=== PATIENT | female | born 1970 | race Caucasian/White ===

== ENCOUNTER → 2017-01-23 | Outpatient (CLI) | payer OTHER ==
[2017-01-23 13:27] LABS: CHLORIDE,CL 105 mmol/L (98-110); SODIUM,NA 136 mmol/L (136-146)
== END ==
LOC: MW.CHFP 12:38
PROVIDERS: ATTEND Physician Assistant
DX: E03.9 Hypothyroidism, unspecified (principal); I10 Essential (primary) hypertension
CPT/HCPCS: 36415; 80053; 80061; 84443

== ENCOUNTER 2017-08-08 18:51 | Emergency (ER) | payer BC ==
[2017-08-08 20:47] VITALS: BP 142/71
--- NOTE | 2017-08-08 20:52 | EDM.PDOC ---
ED HPI GENERAL MEDICAL PROBLEM - General Chief Complaint: Upper Extremity Injury/Pain Stated Complaint: FALL/PAIN RT WRIST Time Seen by Provider: 08/08/17 20:50 Source of Information: Reports: Patient History Limitations: Reports: No Limitations - History of Present Illness INITIAL COMMENTS - FREE TEXT/NARRATIVE: History of present illness: [37-year-old female with a slip and fall injury with hand at extended. Patient complains of pain at wrist site as well as acute swelling] Review of systems: As per history of present illness and below otherwise all systems reviewed and negative. Past medical history: As per history of present illness and as reviewed below otherwise noncontributory. Surgical history: As per history of present illness and as reviewed below otherwise noncontributory. Social history: No reported history of drug or alcohol abuse. Family history: As per history of present illness and as reviewed below otherwise noncontributory. Physical exam: HEENT: Atraumatic, normocephalic, pupils reactive, negative for conjunctival pallor or scleral icterus, mucous membranes moist, throat clear, neck supple, nontender, trachea midline. Lungs: Clear to auscultation, breath sounds equal bilaterally, chest nontender. Heart: S1S2, regular, negative for clicks, rubs, or JVD. Abdomen: Soft, nondistended, nontender. Negative for masses or hepatosplenomegaly. Negative for costovertebral tenderness. Pelvis: Stable nontender. Genitourinary: Deferred. Rectal: Deferred. Extremities: Right wrist with some amount of swelling, point tenderness at the radial region as well as tenderness to palpation negative for cords or calf pain. Neurovascular unremarkable. Neuro: Awake, alert, oriented. Cranial nerves II through XII unremarkable. Cerebellum unremarkable. Motor and sensory unremarkable throughout. Exam nonfocal. Patient declined any pain medication here or on discharge Diagnostics: [X-ray right wrist] Therapeutics: [Wrist splint and sling] Impression: [Fracture of the right radial epiphyseal region] Plan: [Follow-up with orthopedics] Definitive disposition and diagnosis as appropriate pending reevaluation and review of above. right wrist Pain Score (Numeric/FACES): 3 - Related Data Allergies Allergy/AdvReac Type Severity Reaction Status Date / Time acetaminophen [From Percocet] Allergy Hives Verified 04/03/15 19:41 oxycodone HCl [From Percocet] Allergy Hives Verified 04/03/15 19:41 Sulfa (Sulfonamide Allergy Swelling Verified 08/08/17 19:41 Antibiotics) Home Meds: Home Meds Baciguent 1 applicful TRDERM BID 04/03/15 [History] Cephalexin [Keflex] 1 tab PO QID 04/03/15 [History] Eleutherococcus Extract 400 mg PO BID 04/03/15 [History] Hydrocodone/Acetaminophen [[place] 5-325] 1 tab PO Q4H PRN 04/03/15 [History] Ibuprofen [Advil] 4 tab PO TID PRN 04/03/15 [History] Levothyroxine 200 mcg PO DAILY 04/03/15 [History] Methocarbamol [Robaxin] 2 tab PO TID 04/03/15 [History] Nicotine [Nicotine Patch] 14 mg TRDERM DAILY 04/03/15 [History] Omeprazole 1 tab PO DAILY PRN 04/03/15 [History] Tamoxifen [Nolvadex] 0 mg PO DAILY 04/03/15 [History] amLODIPine [Norvasc] 1 tab PO DAILY 04/03/15 [History] traZODone 1 tab PO DAILY 04/03/15 [History] Past Medical History Cardiovascular History: Reports: High Cholesterol, Hypertension Gastrointestinal History: Reports: GERD Psychiatric History: Reports: Anxiety, Depression Endocrine/Metabolic History: Reports: Hypothyroidism Oncologic (Cancer) History: Reports: Breast, Thyroid, Other (See Below) Other Oncologic History: 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 double mastectomy in 2013 and lymph nodes removed in right arm pit. pt has had several rounds of radiation and chemotherapy in the past. - Infectious Disease History Infectious Disease History: Reports: Chicken Pox - Past Surgical History Female Surgical History: Reports: Tubal Ligation Endocrine Surgical History: Reports: Thyroidectomy Social & Family History - Family History Family Medical History: Noncontributory - Tobacco Use Smoking Status *Q: Current Every Day Smoker Years of Tobacco use: 30 Packs/Tins Daily: 0.1 - Caffeine Use Caffeine Use: Reports: Soda - Alcohol Use Days Per Week of Alcohol Use: 1 Number of Drinks Per Day: 0 Total Drinks Per Week: 0 - Recreational Drug Use Recreational Drug Use: No Drug Use in Last 12 Months: No Review of Systems - Review of Systems Review Of Systems: See Below (See history of present illness) ED EXAM, GENERAL - Physical Exam Exam: See Below (See history of present illness) Course - Vital Signs Last Recorded V/S: Last Vital Signs Temp 35.6 C 08/08/17 19:39 Pulse 74 08/08/17 20:47 Resp 18 08/08/17 20:47 BP 142/71 H 08/08/17 20:47 Pulse Ox 95 08/08/17 20:47 - Orders/Labs/Meds Orders: Active Orders 24 hr Category Date Time Status Wrist 2V Rt [CR] Stat Exams 08/08/17 19:27 Taken Departure - Departure Time of Disposition: 20:51 Disposition: Home, Self-Care 01 Condition: Good Clinical Impression: Fracture of radius - Discharge Information Instructions: Cast or Splint Care, [id number]-Mxli, How to Use a Sling, Easy-to- Read Referrals: PCP,None [Primary Care Provider] - Forms: ED Department Discharge Additional Instructions: The following information is given to patients seen in the emergency department who are being discharged to home. This information is to outline your options for follow-up care. We provide all patients seen in our emergency department with a follow-up referral. The need for follow-up, as well as the timing and circumstances, are variable depending upon the specifics of your emergency department visit. If you don't have a primary care physician on staff, we will provide you with a referral. We always advise you to contact your personal physician following an emergency department visit to inform them of the circumstance of the visit and for follow-up with them and/or the need for any referrals to a consulting specialist. The emergency department will also refer you to a specialist when appropriate. This referral assures that you have the opportunity for follow-up care with a specialist. All of these measure are taken in an effort to provide you with optimal care, which includes your follow-up. Under all circumstances we always encourage you to contact your private physician who remains a resource for coordinating your care. When calling for follow-up care, please make the office aware that this follow-up is from your recent emergency room visit. If for any reason you are refused follow-up, please contact the [facility] Emergency Department at and asked to speak to the emergency department charge nurse. Please follow-up with orthopedics as discussed Use splint and sling as directed and discussed Return to ED as needed as discussed [facility] [address], [address] [place] [address] - My Orders Last 24 Hours: My Active Orders 08/08/17 19:27 Wrist 2V Rt [CR] Stat - Assessment/Plan Last 24 Hours: My Active Orders 08/08/17 19:27 Wrist 2V Rt [CR] Stat
--- NOTE | 2017-08-10 13:31 | CR ---
EXAM DATE: 08/08/17 PATIENT'S AGE: 47 Patient: CESAR VOSS Facility: [place], [place] Site . Site : 1970 Study: XRay Extremity Right [id number] 8:06:32 PM Ordering Physician: Doctor Bower Final Report: INDICATION: Wrist pain TECHNIQUE: Wrist radiograph 2 views right COMPARISON: None FINDINGS: Bones: There is a branching lucency seen on the frontal view of the distal radial metaphyseal region. Joints: The radiocarpal, carpal, and carpometacarpal joints are unremarkable in appearance. Soft tissues: Unremarkable. No radiopaque foreign bodies are seen. IMPRESSION: 1. There is a branching lucency seen on the frontal view of the distal radial metaphyseal region. Correlation with physical exam for focal tenderness in this region is recommended to exclude an acute fracture. Dictated by Dimitry Ferguson MD @ 08/08/2017 8:08:57 PM Dictated by: Dimitry Ferguson MD @ 08/08/2017 20:09:01 (Electronic Signature) Report Signed by Proxy. ARIADNA
== END 2017-08-08 20:58 | disposition home or self-care (01) ==
LOC: MW.ED 18:51
DX: S59.291A Other physeal fracture of lower end of radius, right arm, initial encounter for closed fracture (principal); I10 Essential (primary) hypertension; F17.210 Nicotine dependence, cigarettes, uncomplicated; Z88.2 Allergy status to sulfonamides; Z88.5 Allergy status to narcotic agent; Z79.899 Other long term (current) drug therapy; W01.0XXA Fall on same level from slipping, tripping and stumbling without subsequent striking against object, initial encounter
CPT/HCPCS: 73100; 99283; A4566; L3807; 99282

== ENCOUNTER 2017-12-31 06:34 | Day surgery (SDC) | payer BC ==
[2017-12-30 12:00] LABS: CHLORIDE,CL 104 mmol/L (98-107); SODIUM,NA 138 mmol/L (136-145)
[~2017-12-31 06:34] MED LIST: Sodium Chloride 0.9% 10 ML Syringe FLUSH PRN; Sodium Chloride 0.9% 2.5 ML Syringe FLUSH PRN; ceFAZolin 2 GM in Premix Bag 1 BAG IV ONE
[2017-12-31] MEDS: Lactated Ringers 1,000 ML IV SCH ×2 (06:47→11:53)
[2017-12-31] MEDS ORDERED: Scopolamine 1.5 MG Transdermal Patch TRDERM PRN (07:24)
[2017-12-31] MEDS ORDERED: Rocuronium 10 MG/ML 10 ML Syringe ONE (07:25)
[2017-12-31] MEDS ORDERED: Ondansetron 4 MG/2 ML SDV ONE (07:25)
[2017-12-31] MEDS ORDERED: Propofol 200 MG/20 ML SDV ONE (07:25)
[2017-12-31] MEDS ORDERED: Lidocaine 2% 5 ML SDV ONE (07:25)
[2017-12-31] MEDS ORDERED: HYDROmorphone 2 MG/ML SDV ONE (07:26)
[2017-12-31] MEDS ORDERED: fentaNYL 250 MCG/5 ML SDV ONE (07:26)
[2017-12-31] MEDS ORDERED: Midazolam 1 MG/ML 2 ML SDV ONE (07:26)
--- NOTE | 2017-12-31 07:29 | PCM.PREANE ---
Preanesthetic Assessment - Anesthesia/Transfusion/Family Hx Anesthesia History: Prior Anesthesia Without Reaction Other Type of Anesthesia Reaction Comment: DENIES ANY PROBLEMS WITH ANESTHESIA, has top partial Family History of Anesthesia Reaction: No Transfusion History: No Prior Transfusion(s) - Review of Systems General: No Symptoms Pulmonary: No Symptoms Cardiovascular: No Symptoms Gastrointestinal: No Symptoms Neurological: No Symptoms Other: Reports: None - Physical Assessment O2 Sat by Pulse Oximetry: 97 Respiratory Rate: 16 Vital Signs: Last Vital Signs Temp 36.4 C 12/31/17 06:46 Pulse 80 12/31/17 06:46 Resp 16 12/31/17 06:46 BP 131/69 12/31/17 06:46 Pulse Ox 97 12/31/17 06:46 Height: 1.68 m Weight: 79.379 kg ASA Class: 3 Mental Status: Alert & Oriented x3 Airway Class: Mallampati = 2 Dentition: Reports: Dentures (upper) Thyro-Mental Finger Breadths: 3 Mouth Opening Finger Breadths: 2 ROM/Head Extension: Full Lungs: Clear to Auscultation, Normal Respiratory Effort Cardiovascular: Regular Rate, Regular Rhythm - Lab Values: Laboratory Last Values WBC 7.01 K/uL (4.0-11.0) 12/30/17 11:20 RBC 3.71 M/uL (4.30-5.90) L 12/30/17 11:20 Hgb 9.3 g/dL (12.0-16.0) L 12/30/17 11:20 Hct 30.7 % (36.0-46.0) L 12/30/17 11:20 MCV 82.7 fL (80.0-98.0) 12/30/17 11:20 MCH 25.1 pg (27.0-32.0) L 12/30/17 11:20 MCHC 30.3 g/dL (31.0-37.0) L 12/30/17 11:20 RDW Std Deviation 46.6 fl (28.0-62.0) 12/30/17 11:20 RDW Coeff of Latoya 15 % (11.0-15.0) 12/30/17 11:20 Plt Count 447 K/uL (150-400) H 12/30/17 11:20 MPV 10.00 fL (7.40-12.00) 12/30/17 11:20 Nucleated RBC % 0.0 /100WBC 12/30/17 11:20 Nucleated RBCs # 0 K/uL 12/30/17 11:20 Sodium 138 mmol/L (136-145) 12/30/17 11:20 Potassium 3.6 mmol/L (3.5-5.1) 12/30/17 11:20 Chloride 104 mmol/L (98-107) 12/30/17 11:20 Carbon Dioxide 25.1 mmol/L (21.0-32.0) 12/30/17 11:20 BUN 20 mg/dL (7.0-18.0) H 12/30/17 11:20 Creatinine 0.7 mg/dL (0.6-1.0) 12/30/17 11:20 Est Cr Clr Drug Dosing 92.01 mL/min 12/30/17 11:20 Estimated GFR (MDRD) > 60.0 ml/min 12/30/17 11:20 Glucose 88 mg/dL (74-106) 12/30/17 11:20 Calcium 9.9 mg/dL (8.5-10.1) 12/30/17 11:20 HCG, Qual NEGATIVE (NEG) 12/30/17 11:20 Blood Type AB POSITIVE 12/30/17 11:20 Antibody Screen NEGATIVE 12/30/17 11:20 - Allergies Allergies/Adverse Reactions: Allergies Allergy/AdvReac Type Severity Reaction Status Date / Time acetaminophen [From Percocet] Allergy Difficulty Verified 12/31/17 07:10 Breathing oxycodone HCl [From Percocet] Allergy Difficulty Verified 12/31/17 07:10 Breathing Sulfa (Sulfonamide Allergy Difficulty Verified 12/31/17 07:10 Antibiotics) Breathing - Blood Blood Available: No - Anesthesia Plan Pre-Op Medication Ordered: None - Acknowledgements Anesthesia Type Planned: General Anesthesia Pt an Appropriate Candidate for the Planned Anesthesia: Yes Alternatives and Risks of Anesthesia Discussed w Pt/Guardian: Yes Pt/Guardian Understands and Agrees with Anesthesia Plan: Yes PreAnesthesia Questionnaire HEENT History: Reports: Other (See Below) Other HEENT History: has upper denture Cardiovascular History: Reports: High Cholesterol, Hypertension Gastrointestinal History: Reports: GERD PAPER TESTER History: Reports: Endometrial Ablation Musculoskeletal History: Reports: Fracture, Neck Pain, Chronic Other Musculoskeletal History: hx of fx wrist Neurological History: Reports: Other (See Below) Other Neuro History: claustrophobic Psychiatric History: Reports: Anxiety, Depression, Other (See Below) ( claustrophobia) Endocrine/Metabolic History: Reports: Hypothyroidism Oncologic (Cancer) History: Reports: Breast, Other (See Below) Other Oncologic History: 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, malignant schwannona- had excision x2 and lymph nodes removed from neck Other Dermatologic History: had total of 16 surgeries on right side of her neck , scar tissue on neck from radiation therapy and surgery, lymphedema right arm - Infectious Disease History Infectious Disease History: Reports: Chicken Pox - Past Surgical History Female Surgical History: Reports: Endometrial Ablation, Mastectomy, Tubal Ligation Endocrine Surgical History: Reports: Thyroidectomy Oncologic Surgical History: Reports: Mastectomy, Other (See Below) - SUBSTANCE USE Smoking Status *Q: Current Every Day Smoker (1/2 ppd , takes wellbutrin to stop smoking) Tobacco Use Within Last Twelve Months: Cigarettes Days Per Week of Alcohol Use: 1 Number of Drinks Per Day: 0 Total Drinks Per Week: 0 Recreational Drug Use History: No - HOME MEDS Home Medications: Home Meds Ibuprofen [Advil] 1 - 2 tab PO Q4H PRN 04/03/15 [History] Levothyroxine 200 mcg PO DAILY 04/03/15 [History] Omeprazole 20 mg PO DAILY PRN 04/03/15 [History] amLODIPine [Norvasc] 5 mg PO DAILY 04/03/15 [History] Levothyroxine 25 mcg PO DAILY 12/29/17 [History] PARoxetine HCl [Paxil] 20 mg PO DAILY 12/29/17 [History] atorvaSTATin Calcium [Atorvastatin Calcium] 40 mg PO BEDTIME 12/29/17 [History] buPROPion HCl [Wellbutrin SR] 150 mg PO BID 12/29/17 [History] - CURRENT (IN HOUSE) MEDS Current Meds: Current Medications Lactated Ringer's (Ringers, Lactated) 1,000 mls @ 125 mls/hr IV ASDIRECTED AMBER Last Admin: 12/31/17 06:47 Dose: 125 mls/hr Sodium Chloride (Saline Flush) 10 ml FLUSH ASDIRECTED PRN PRN Reason: Keep Vein Open Sodium Chloride (Saline Flush) 2.5 ml FLUSH ASDIRECTED PRN PRN Reason: Keep Vein Open Discontinued Medications Cefazolin Sodium/Dextrose 2 gm (/ Premix) 50 mls @ 100 mls/hr IV ONETIME ONE Stop: 12/30/17 10:48
[2017-12-31] MEDS ORDERED: ACETAMINOPHEN IV ONE (07:39)
[2017-12-31] MEDS ORDERED: Fluorescein 5 ML Vial ONE (07:39)
[2017-12-31] MEDS ORDERED: ceFAZolin/Dextrose,Iso-Osmotic 2 GM/50 ML Duplex Bag IV ONE (07:40)
[2017-12-31] MEDS ORDERED: Dexamethasone 4 MG/ML 5 ML MDV ONE (08:09)
[2017-12-31] MEDS ORDERED: fentaNYL 100 MCG/2 ML SDV IVPUSH PRN (08:16)
[2017-12-31] MEDS ORDERED: Octyl 2-Cyanoacrylate 1 Tube ONE (08:24)
[2017-12-31] MEDS ORDERED: Glycopyrrolate 0.2 MG/ML SDV ONE (09:03)
[2017-12-31] MEDS ORDERED: Neostigmine Methylsulfate 1 MG/ML 5 ML Syringe ONE (09:03)
[2017-12-31] MEDS ORDERED: Ketorolac 30 MG/ML SDV ONE (09:04)
[2017-12-31] MEDS ORDERED: Ketorolac 30 MG/ML SDV IVPUSH ONE (09:06)
[2017-12-31] MEDS ORDERED: Promethazine 25 MG/ML SDV IM PRN (09:06)
[2017-12-31] MEDS ORDERED: Acetaminophen/oxyCODONE 325-5 MG Tab PO PRN ×4 (09:06→13:55)
[2017-12-31] MEDS ORDERED: Ondansetron 4 MG/2 ML SDV IVPUSH PRN (09:06)
[2017-12-31] MEDS ORDERED: Morphine 4 MG/ML Syringe IVPUSH PRN (09:06)
--- NOTE | 2017-12-31 09:10 | PCM.OPNOTE ---
- General Post-Op/Procedure Note Date of Surgery/Procedure: 12/31/17 Operative Procedure(s): TLH, BSO and Cystoscopy Pre Op Diagnosis: Bleeding and enlarge uterus Post-Op Diagnosis: Same Anesthesia Technique: General ET Tube, Moderate Sedation Primary Surgeon: Eduard Brand Steel Handler: Ree Martinez EBL in mLs: 75 Complications: None Condition: Good
[2017-12-31] MEDS ORDERED: Ondansetron 4 MG/2 ML SDV IV PRN (13:55)
[2017-12-31] MEDS ORDERED: Ibuprofen 800 MG Tab PO PRN (13:55)
[2017-12-31] MEDS ORDERED: diphenhydrAMINE 50 MG/ML SDV IVPUSH PRN (13:55)
[2017-12-31] MEDS ORDERED: Bisacodyl 10 MG Supp RECTAL PRN (13:55)
[2017-12-31] MEDS ORDERED: Lanolin 100% Cream 7 GM Tube TOP PRN (13:55)
[2017-12-31] MEDS ORDERED: Lactated Ringers 1,000 ML IV SCH (14:00)
--- NOTE | 2017-12-31 14:33 | OR ---
SURGEON: Eduard Brand MD DATE OF PROCEDURE: PREOPERATIVE DIAGNOSES: 1. Menometrorrhagia. 2. Large uterus, possible fibroid. POSTOPERATIVE DIAGNOSES: 1. Menometrorrhagia. 2. Large uterus, possible fibroid. OPERATION PERFORMED: Examination under anesthesia, total laparoscopic hysterectomy, laparoscopic bilateral salpingo-oophorectomy, and cystoscopy. ALLIGATOR TRAPPER: BERNARDO Gutierrez ANESTHESIA: General endotracheal intubation, Agatha Corral and Dr. Mijares. ESTIMATED BLOOD LOSS: 75 mL. COMPLICATIONS: None. FINDINGS: Uterus about 11 to 12 weeks' size, minimum adhesion. INDICATION FOR SURGERY: Mallory refer to the admit note. PROCEDURE IN DETAIL: The patient was brought to the OR, properly identified. After adequate level of general anesthesia, the patient was placed in lithotomy position with an access to the abdomen and the vagina. The patient was prepped and draped in sterile fashion as usual. Ferguson catheter was placed in the bladder and then the uterine manipulator colpotomizer was placed, and an appropriate balloon was inflated without any problem. Then, the operation shifted abdominally. Stab wound done beneath the umbilicus. The Veress needle was placed in the peritoneal cavity and that cavity insufflated 6 L of carbon dioxide. The skin incision is large to accommodate 5 mm trocars and utilizing the Visiport technique, the peritoneal cavity was entered. Once we did that, then a 10 to 12 trocar and 5 mm trocar inserted in the left and right iliac fossa under direct visions. We started the operation by identifying the landmark of the pelvis and then using the PARDEEP-7 Harmonic scapula, the superior pedicle coagulated and transected. The tubes and ovary are included with the specimen. The same thing was done on both sides. Then, round ligament on both sides coagulated and transected, and then the anterior leaf of the broad ligament dissected down more medially pushing the bladder completely away from the operative field, and then skeletonization of the uterine vessels at the level of the VCare manipulator veins and these vessel coagulated and transected using Pardeep Harmonic scapula. Once that is done, then using the Pardeep Harmonic scapula, circular incision in the vaginal mucosa around the tip of the VCare manipulator detaching the cervix from its attachment to the vagina. The uterus and cervix in both tubes and ovary removed vaginally, and then pneumoperitoneum was re-established by placing vaginal pack in the vagina, and then thorough irrigation of the entire operative field. There was no oozing and no bleeding, and we proceeded to close the vaginal cuff laparoscopically using 2-0 PDS interrupted sutures. While we were doing that, we asked the anesthesia personnel to give the patient fluorescein and then after that, the abdomen deflated. Ferguson catheter was removed. Cystoscopy performed. The bladder was intact. Both ureteric orifices were seen with the dye coming from both of them. Thus, the patency of both ureters verified. Satisfied with these finding and the procedure ended. Multiple instrument and hardware were retrieved from the abdomen and the vagina, then multiple laparoscopic incisions were closed in layer with 3-0 Vicryl. Instrument and sponge count were correct x2, and the patient tolerated the procedure well, went to recovery room in stable general condition. DANE / LAURY /[id number]
[2017-12-31] MEDS ORDERED: Ketorolac 30 MG/ML SDV IVPUSH PRN (15:00)
[2017-12-31] MEDS: Ketorolac 30 MG/ML SDV IVPUSH SCH ×2 (15:09→20:30)
[2017-12-31] MEDS: Docusate Sodium 100 MG Cap PO SCH (20:34)
[2018-01-01] MEDS: Ketorolac 30 MG/ML SDV IVPUSH SCH ×2 (01:10→07:35)
[2018-01-01 05:34] LABS: CHLORIDE,CL 106 mmol/L (98-107); SODIUM,NA 139 mmol/L (136-145)
--- NOTE | 2018-01-01 07:43 | PCM48HPAN ---
Post Anesthesia Note - EVALUATION WITHIN 48HRS OF ANESTHETIC Vital Signs in Normal Range: Yes Patient Participated in Evaluation: Yes Respiratory Function Stable: Yes Airway Patent: Yes Cardiovascular Function Stable: Yes Hydration Status Stable: Yes Pain Control Satisfactory: Yes Nausea and Vomiting Control Satisfactory: Yes Mental Status Recovered: Yes Resp Rate: 16
[2018-01-01 08:07] VITALS: BP 115/66
--- NOTE | 2018-01-01 09:11 | PCM.SURGPN ---
- General Info Date of Service: 01/01/18 POD#: 1 Functional Status: Reports: Pain Controlled - Review of Systems General: Reports: No Symptoms HEENT: Reports: No Symptoms Pulmonary: Reports: No Symptoms Cardiovascular: Reports: No Symptoms Gastrointestinal: Reports: No Symptoms Genitourinary: Reports: No Symptoms Musculoskeletal: Reports: No Symptoms Skin: Reports: No Symptoms Neurological: Reports: No Symptoms Psychiatric: Reports: No Symptoms - Patient Data Vitals - Most Recent: Last Vital Signs Temp 36.4 C 01/01/18 08:00 Pulse 96 01/01/18 08:00 Resp 22 H 01/01/18 08:00 BP 115/66 01/01/18 08:00 Pulse Ox 92 L 01/01/18 08:00 Weight - Most Recent: 79.379 kg I&O - Last 24 Hours: Intake & Output 12/31/17 01/01/18 01/01/18 22:59 06:59 14:59 Intake Total 570 Output Total 1150 Balance -580 Lab Results Last 24 Hrs: Laboratory Results - last 24 hr 01/01/18 01/01/18 Range/Units 05:00 05:00 WBC 11.60 H (4.0-11.0) K/uL RBC 3.22 L (4.30-5.90) M/uL Hgb 8.1 L (12.0-16.0) g/dL Hct 26.8 L (36.0-46.0) % MCV 83.2 (80.0-98.0) fL MCH 25.2 L (27.0-32.0) pg MCHC 30.2 L (31.0-37.0) g/dL RDW Std Deviation 46.6 (28.0-62.0) fl RDW Coeff of Latoya 15 (11.0-15.0) % Plt Count 401 H (150-400) K/uL MPV 9.90 (7.40-12.00) fL Neut % (Auto) 81.3 H (48.0-80.0) % Lymph % (Auto) 7.0 L (16.0-40.0) % [place] % (Auto) 11.1 (0.0-15.0) % Eos % (Auto) 0.4 (0.0-7.0) % Baso % (Auto) 0.2 (0.0-1.5) % Neut # (Auto) 9.4 H (1.4-5.7) K/uL Lymph # (Auto) 0.8 (0.6-2.4) K/uL [place] # (Auto) 1.3 H (0.0-0.8) K/uL Eos # (Auto) 0.1 (0.0-0.7) K/uL Baso # (Auto) 0.0 (0.0-0.1) K/uL Nucleated RBC % 0.0 /100WBC Nucleated RBCs # 0 K/uL Sodium 139 (136-145) mmol/L Potassium 3.6 (3.5-5.1) mmol/L Chloride 106 (98-107) mmol/L Carbon Dioxide 25.6 (21.0-32.0) mmol/L BUN 16 (7.0-18.0) mg/dL Creatinine 0.7 (0.6-1.0) mg/dL Est Cr Clr Drug Dosing 92.01 mL/min Estimated GFR (MDRD) > 60.0 ml/min Glucose 121 H (74-106) mg/dL Calcium 9.0 (8.5-10.1) mg/dL Med Orders - Current: Current Medications Docusate Sodium (Colace) 100 mg PO BID [facility] Last Admin: 12/31/17 20:34 Dose: 100 mg Fentanyl (Sublimaze) 50 mcg IVPUSH .Q5MIN PRN PRN Reason: Pain Lactated Ringer's (Ringers, Lactated) 1,000 mls @ 125 mls/hr IV ASDIRECTED [facility] Last Admin: 12/31/17 11:53 Dose: 125 mls/hr Lactated Ringer's (Ringers, Lactated) 1,000 mls @ 125 mls/hr IV ASDIRECTED [facility] Ketorolac Tromethamine (Toradol) 30 mg IVPUSH Q6H PRN PRN Reason: Pain (severe 7-10) Stop: 01/05/18 15:01 Ketorolac Tromethamine (Toradol) 30 mg IVPUSH Q6H [facility] Stop: 01/01/18 14:01 Last Admin: 01/01/18 07:35 Dose: 30 mg Morphine Sulfate (Morphine) 4 mg IVPUSH Q2H PRN PRN Reason: Pain (severe 7-10) Ondansetron HCl (Zofran) 4 mg IVPUSH Q6H PRN PRN Reason: Nausea/Vomiting Promethazine HCl (Phenergan) 25 mg IM Q6H PRN PRN Reason: Nausea/Vomiting Scopolamine (Transderm-Scop) 1.5 mg TRDERM Q72H PRN PRN Reason: Nausea Last Admin: 12/31/17 07:36 Dose: 1.5 mg Sodium Chloride (Saline Flush) 10 ml FLUSH ASDIRECTED PRN PRN Reason: Keep Vein Open Sodium Chloride (Saline Flush) 2.5 ml FLUSH ASDIRECTED PRN PRN Reason: Keep Vein Open Discontinued Medications Cefazolin Sodium/Dextrose (Ancef) Confirm Administered Dose 2 gm IV .STK-MED ONE Stop: 12/31/17 07:41 Dexamethasone (Dexamethasone) Confirm Administered Dose 20 mg .ROUTE .STK-MED ONE Stop: 12/31/17 08:10 Fentanyl (Sublimaze) Confirm Administered Dose 250 mcg .ROUTE .STK-MED ONE Stop: 12/31/17 07:27 Fluorescein Sodium (Ak-Fluor) Confirm Administered Dose 10 ml .ROUTE .STK-MED ONE Stop: 12/31/17 07:40 Glycopyrrolate (Robinul) Confirm Administered Dose 0.4 mg .ROUTE .STK-MED ONE Stop: 12/31/17 09:04 Hydromorphone HCl (Dilaudid) Confirm Administered Dose 2 mg .ROUTE .STK-MED ONE Stop: 12/31/17 07:27 Cefazolin Sodium/Dextrose 2 gm (/ Premix) 50 mls @ 100 mls/hr IV ONETIME ONE Stop: 12/30/17 10:48 Last Admin: 12/31/17 11:45 Dose: Not Given Acetaminophen (Ofirmev) Confirm Administered Dose 200 mls @ as directed IV .STK- MED ONE Stop: 12/31/17 07:40 Ketorolac Tromethamine (Toradol) Confirm Administered Dose 30 mg .ROUTE .STK- MED ONE Stop: 12/31/17 09:05 Ketorolac Tromethamine (Toradol) 30 mg IVPUSH ONETIME ONE Stop: 12/31/17 09:07 Last Admin: 12/31/17 11:45 Dose: Not Given Lidocaine (Xylocaine-Mpf 2%) Confirm Administered Dose 5 ml .ROUTE .STK-MED ONE Stop: 12/31/17 07:26 Midazolam HCl (Versed 1 Mg/Ml) Confirm Administered Dose 2 mg .ROUTE .STK-MED ONE Stop: 12/31/17 07:27 Neostigmine Methylsulfate (Neostigmine) Confirm Administered Dose 5 mg .ROUTE .STK-MED ONE Stop: 12/31/17 09:04 Octyl Cyanoacrylate (Dermabond Advance) Confirm Administered Dose 1 applic .ROUTE .STK-MED ONE Stop: 12/31/17 08:25 Ondansetron HCl (Zofran) Confirm Administered Dose 4 mg .ROUTE .STK-MED ONE Stop: 12/31/17 07:26 Propofol (Diprivan 20 Ml) Confirm Administered Dose 200 mg .ROUTE .STK-MED ONE Stop: 12/31/17 07:26 Rocuronium Ney (Zemuron) Confirm Administered Dose 100 mg .ROUTE .STK-MED ONE Stop: 12/31/17 07:26 - Exam Wound/Incisions: Healing Well General: Alert, Oriented HEENT: Pupils Equal Neck: Supple Lungs: Clear to Auscultation, Normal Respiratory Effort Cardiovascular: Regular Rate, Regular Rhythm GI/Abdominal Exam: Normal Bowel Sounds, Soft, Non-Tender, No Organomegaly, No Distention, No Abnormal Bruit, No Mass, Pelvis Stable Extremities: Normal Inspection, Normal Range of Motion, Non-Tender, No Pedal Edema, Normal Capillary Refill Skin: Warm, Dry, Intact Neurological: No New Focal Deficit Psy/Mental Status: Alert, Normal Affect, Normal Mood - Problem List Review Problem List Initiated/Reviewed/Updated: Yes - My Orders Last 24 Hours: Active Orders 24 hr Category Date Time Status Patient Status [ADT] Routine ADT 12/31/17 13:55 Active Communication Order [RC] PER UNIT ROUTINE Care 12/31/17 13:55 Inactive Communication Order [RC] PER UNIT ROUTINE Care 12/31/17 13:55 Inactive Communication Order [RC] Per Unit Routine Care 12/31/17 13:55 Inactive Notify Provider Vital Signs [RC] ASDIRECTED Care 12/31/17 09:06 Active Oxygen Therapy [RC] ASDIRECTED Care 12/31/17 09:06 Active RT Incentive Spirometry [RC] Q2HWA Care 12/31/17 09:06 Active Regular Diet [DIET] Diet 01/01/18 Breakfast Active Docusate Sodium [Colace] Med 12/31/17 21:00 Active 100 mg PO BID Ketorolac [Toradol] Med 12/31/17 14:00 Active 30 mg IVPUSH Q6H Ketorolac [Toradol] Med 12/31/17 15:00 Active 30 mg IVPUSH Q6H PRN Lactated Ringers [Ringers, Lactated] 1,000 ml Med 12/31/17 14:00 Active IV ASDIRECTED Morphine Med 12/31/17 09:06 Active 4 mg IVPUSH Q2H PRN Ondansetron [Zofran] Med 12/31/17 09:06 Active 4 mg IVPUSH Q6H PRN Promethazine [Phenergan] Med 12/31/17 09:06 Active 25 mg IM Q6H PRN fentaNYL [Sublimaze] Med 12/31/17 08:16 Active 50 mcg IVPUSH .Q5MIN PRN Peripheral IV Discontinue [OM.PC] Routine Oth 12/31/17 09:06 Ordered Sequential Compression Device [OM.PC] Per Unit Routine Oth 12/31/17 09:06 Ordered Resuscitation Status Routine Resus Stat 12/31/17 09:06 Ordered Medication Orders Docusate Sodium (Colace) 100 mg PO BID [facility] Last Admin: 12/31/17 20:34 Dose: 100 mg Fentanyl (Sublimaze) 50 mcg IVPUSH .Q5MIN PRN PRN Reason: Pain Lactated Ringer's (Ringers, Lactated) 1,000 mls @ 125 mls/hr IV ASDIRECTED [facility] Last Admin: 12/31/17 11:53 Dose: 125 mls/hr Infusion: 12/31/17 11:53 Dose: 125 mls/hr Admin: 12/31/17 06:47 Dose: 125 mls/hr Lactated Ringer's (Ringers, Lactated) 1,000 mls @ 125 mls/hr IV ASDIRECTED [facility] Ketorolac Tromethamine (Toradol) 30 mg IVPUSH Q6H PRN PRN Reason: Pain (severe 7-10) Stop: 01/05/18 15:01 Ketorolac Tromethamine (Toradol) 30 mg IVPUSH Q6H [facility] Stop: 01/01/18 14:01 Last Admin: 01/01/18 07:35 Dose: 30 mg Admin: 01/01/18 01:10 Dose: 30 mg Admin: 12/31/17 20:30 Dose: 30 mg Admin: 12/31/17 15:09 Dose: 30 mg Morphine Sulfate (Morphine) 4 mg IVPUSH Q2H PRN PRN Reason: Pain (severe 7-10) Ondansetron HCl (Zofran) 4 mg IVPUSH Q6H PRN PRN Reason: Nausea/Vomiting Promethazine HCl (Phenergan) 25 mg IM Q6H PRN PRN Reason: Nausea/Vomiting Scopolamine (Transderm-Scop) 1.5 mg TRDERM Q72H PRN PRN Reason: Nausea Last Admin: 12/31/17 07:36 Dose: 1.5 mg Sodium Chloride (Saline Flush) 10 ml FLUSH ASDIRECTED PRN PRN Reason: Keep Vein Open Sodium Chloride (Saline Flush) 2.5 ml FLUSH ASDIRECTED PRN PRN Reason: Keep Vein Open - Assessment Assessment (Free Text/Narrative):: Status post total laparoscopic hysterectomy laparoscopic bilateral salpingo- oophorectomy and cystoscopy postoperative day #1 patient is doing well on regular diet moving without any problem voiding and there is no vaginal bleeding. Her postoperative lab is okay in comparison to have preoperative - Plan Plan (Free Text/Narrative):: The patient will be sent home today the postvasectomy instruction patient was given a prescription of Percocet 7.5/325 for postoperative pain patient instructed to come to the office 1 week of her discharge for late postoperative checkup
[2018-01-01] MEDS: Docusate Sodium 100 MG Cap PO SCH (09:53)
== END 2018-01-01 10:15 | disposition home or self-care (01) ==
LOC: MW.SDS 06:34 → MW.MS 09:06 → MW.SDS 01-01 10:15
PROVIDERS: ATTEND Obstetrics & Gynecology
DX: D25.1 Intramural leiomyoma of uterus (principal); N80.0 Endometriosis of uterus; N87.9 Dysplasia of cervix uteri, unspecified; N83.02 Follicular cyst of left ovary; N83.01 Follicular cyst of right ovary; I10 Essential (primary) hypertension; E03.9 Hypothyroidism, unspecified; F41.8 Other specified anxiety disorders; E78.00 Pure hypercholesterolemia, unspecified; K21.9 Gastro-esophageal reflux disease without esophagitis; Z98.51 Tubal ligation status; Z88.2 Allergy status to sulfonamides; Z88.8 Allergy status to other drugs, medicaments and biological substances; Z79.899 Other long term (current) drug therapy; F17.210 Nicotine dependence, cigarettes, uncomplicated
CPT/HCPCS: 36415; 58571; 80048; 84703; 85025; 85027; 86850; 86900; 86901; A9270; J0690; J1100; J1170; J1885; J2250; J2405; J3010; J7120; 00840; 88307; J2704